=== PATIENT | male | born 1955 | race Caucasian/White ===

== ENCOUNTER → 2020-06-14 11:23 | Outpatient (CLI) | payer MEDICARE, OTHER, SELFPAY ==
--- NOTE | ~2020-06-14 | XR_ITS ---
EXAMINATION: XR hip BI 2V w AP pelvis DATE: 06/14/2020 11:48 INDICATION: Hip pain TECHNIQUE: AP view the pelvis and two views of each hip were obtained. COMPARISON: None. FINDINGS: Bone alignment is normal. There is no fracture. There is advanced osteoarthritis of the rig ht hip and mild osteoarthritis of the left hip. Phleboliths are noted in the pelvis. The soft tissues are otherwise unremarkable. IMPRESSION: 1. Advanced osteoarthritis of the right hip and mild osteoarthritis of the left hip. Reviewed, dictated and finalized at location A.
== END ==
PROVIDERS: PCP Internal Medicine; Visit Provider Internal Medicine
DX: M16.0 Bilateral primary osteoarthritis of hip (principal)
CPT/HCPCS: 73521

== ENCOUNTER 2020-09-14 07:52 | Outpatient (CLI) | payer MEDICARE, OTHER, SELFPAY ==
--- NOTE | 2020-09-14 08:47 | ECG_ITS ---
Measurements Intervals [place] Rate: 71 P: 59 LA: 143 QRS: 14 QRSD: 96 T: 28 QT: 389 QTc: 423 Interpretive Statements SINUS RHYTHM WITH SINUS ARRHYTHMIA BORDERLINE R WAVE PROGRESSION, ANTERIOR LEADS BASELINE ARTIFACT- I, II, III, AVR, AVL, AVF ABNORMAL ECG Electronically Signed On 09-14-2020 9:22:05 SITE PHYSICIAN by Jarrell Neal D.O.
[2020-09-14 09:42] LABS: Basophils Absolute Auto 0.1 K/mm3 (0.0-0.1); Basophils Percent Auto 0.9 % (0.2-1.2); Eosinophils Absolute Auto 0.2 K/mm3 (0-0.3); Eosinophils Percent Auto 1.8 % (0-4.4); Hematocrit 43.5 % (42.0-52.0); Hemoglobin 15.5 g/dL (14.0-18.0); Immature Granulocyte Absolute 0.02 K/mm3 (0.00-0.031); Immature Granulocyte Percent A 0.2 % (0-0.5); Lymphocytes Absolute Auto 1.22 K/mm3 (0.9-3.2); Lymphocytes Percent Auto 14.9 % (18.3-44.2); Mean Corpuscular HGB Conc 35.6 g/dl (32-36); Mean Corpuscular Hemoglobin 34.1 pg (26-34); Mean Corpuscular Volume 95.8 fl (80-100); Mean Platelet Volume 10.7 fl (7.4-10.4); Monocytes Absolute Auto 0.9 K/mm3 (0.1-0.6); Monocytes Percent Auto 11.5 % (2.6-8.5); Neutrophils Absolute Auto 5.8 K/mm3 (1.3-6.7); Neutrophils Percent Auto 70.7 % (45.5-73.1); Platelet Count Result 283 k/mm3 (150-375); Red Blood Count 4.54 M/mm3 (4.6-6.20); Red Cell Distribution Width 13.3 % (11.5-14.5); White Blood Count 8.2 K/mm3 (4.5-10.0)
[2020-09-14 09:51] LABS: Albumin Level 4.5 g/dL (3.5-5.1)
[2020-09-14 09:53] LABS: Anion Gap 6 mmol/L (8-16); Blood Urea Nitrogen 28 mg/dL (9-20); Calcium 9.5 mg/dL (8.4-10.2); Carbon Dioxide 33 mmol/L (22-30); Chloride 99 mmol/L (98-107); Estimated Glomerular Filt Rate > 60; Glucose 93 mg/dL (75-110); Potassium 4.5 mmol/L (3.4-5.0); Sodium 138 mmol/L (137-145)
[2020-09-14 10:03] LABS: Hemoglobin A1C 5.5 % (<5.7)
[2020-09-14 10:19] LABS: Urine Cotinine NEGATIVE
== END 2020-09-14 07:53 | disposition home or self-care (01) ==
LOC: ANHSURGERY 07:55
PROVIDERS: Anesthesiology; PCP Internal Medicine; Visit Provider Orthopaedic Surgery
DX: Z01.818 Encounter for other preprocedural examination (principal); M16.11 Unilateral primary osteoarthritis, right hip; Z51.81 Encounter for therapeutic drug level monitoring; Z79.899 Other long term (current) drug therapy
CPT/HCPCS: 36415; 80048; 80307; 82040; 83036; 85025; 86850; 86900; 86901; 87081; 93005

== ENCOUNTER 2020-09-24 00:51 | Outpatient (CLI) | payer MEDICARE, OTHER, SELFPAY ==
[2020-09-24 18:46] LABS: SARS-CoV-2 RNA PCR Negative
== END 2020-09-24 00:52 | disposition home or self-care (01) ==
LOC: ANHCOVIDDT 00:51
PROVIDERS: PCP Internal Medicine; Visit Provider Orthopaedic Surgery
DX: Z01.812 Encounter for preprocedural laboratory examination (principal); Z20.822 Contact with and (suspected) exposure to COVID-19
CPT/HCPCS: C9803; U0003; U0005

== ENCOUNTER 2020-09-27 02:39 | Day surgery (SDC) | payer MEDICARE, OTHER, SELFPAY ==
[2020-09-14 08:24] VITALS: BMI 24.0
[2020-09-27] VITALS (11 sets, daily range): BP systolic 103–140; BP diastolic 60–77; PULSE 63–84; RESP 9–20; TEMP 36.5; O2SAT 96–100
--- NOTE | ~2020-09-27 | XR_ITS ---
EXAMINATION: XR hip RT min 2V DATE: 09/27/2020 10:37 INDICATION: Right hip arthroplasty. Postop. TECHNIQUE: 2 views of right hip were obtained. COMPARISON: Pelvis radiograph 08/25/2020 FINDINGS: There is a total right hip arthroplasty in near-anatomic alignment. No fracture. There is g as in the soft tissues, consistent with recent surgery. IMPRESSION: 1. Total right hip arthroplasty in near-anatomic alignment. Reviewed, dictated and finalized at location B. ASTIC COACH
--- NOTE | ~2020-09-27 | XR_ITS ---
EXAMINATION: XR surgery orthopedic DATE: 09/27/2020 10:04 INDICATION: Right hip osteoarthritis. TECHNIQUE: 2 intraoperative fluoroscopic views of right hip were obtained. I was not present. Fluoros copy exposure time was 24 seconds. COMPARISON: Pelvis radiograph 08/25/2020. FINDINGS: The first image demonstrates severe right hip osteoarthritis. The second image demonstrates a total right hip arthroplasty in near-anatomic alignment. IMPRESSION: 1. Total right hip arthroplasty in near-anatomic alignment. Reviewed, dictated and finalized at location B. LS MOLDER
[2020-09-27] MEDS: LACTATED RINGERS 1,000 ML 30 ML IV CONT ×2 (06:30→10:23)
[2020-09-27] MEDS: ACETAMINOPHEN 500 MG TABLET 1000 MG PO (06:40)
[2020-09-27] MEDS: TRANEXAMIC ACID 1,000MG/ISO100 1,000 MG/100 ML BAG 200 MG IVPB (06:44)
--- NOTE | 2020-09-27 06:49 | P.PNAN_ITS ---
Anes - Initial Pre Proc Eval Procedure: Operation Date: 09/27/20 07:30 Proposed Procedures p Right Total Hip Anterior Approach - Davin Btehea MD Date/Time: 09/27/20 06:49 Surgeon: Davin Bethea MD Pre Op Diagnosis: Right Hip OA Patient Data Age: 65 Gender: M Height: 1.75 m Weight: 74 kg Allergies Allergy/AdvReac Type Severity Reaction Status Date / Time No Known Allergies Allergy Mild Verified 09/27/20 06:46 Home Medications Medication Instructions Recorded Confirmed Type tadalafil 5 mg tablet 5 mg PO DAILY PRN #30 tablet 06/09/20 09/21/20 Rx ibuprofen 200 mg tablet 400 mg PO Q6H PRN 08/25/20 09/27/20 History multivitamin 1 tablet PO BID 08/25/20 09/27/20 History acetaminophen [Tylenol Arthritis] 1,300 mg PO Q12H PRN 09/14/20 09/27/20 History amlodipine 5 mg QAM 09/14/20 09/27/20 History hydrochlorothiazide 50 mg QAM 09/14/20 09/27/20 History rosuvastatin 40 mg PO HS 09/14/20 09/21/20 History lisinopril 40 mg tablet 40 mg PO BID #180 tablet 09/16/20 09/27/20 Rx magnesium citrate 150 ml PO DAILY 09/21/20 09/27/20 History rivaroxaban 10 mg tablet 10 mg PO DAILY #14 tablet 09/21/20 09/27/20 Rx rosuvastatin 40 mg PO DAILY 09/27/20 09/27/20 History Patient hx anesthesia problems: none Family hx anesthesia problems: none [facility] Past Medical History Medical History BMI 24.0-24.9, adult BMI 25.0-25.9,adult Hypertension Osteoarthritis of right hip Family History Family History Mother Family history of osteoporosis Father Family history of congestive heart failure, Onset Age: 83 Social History Social History Smoking status: Former smoker Second hand tobacco smoke exposure: No Alcohol intake: current Drinks per week: 2 Substance use: never Substance use type: does not use Living arrangements: with family 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, 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 Questions were solicited and answers provided to the satisfaction of the patient/family/POA.
--- NOTE | 2020-09-27 07:12 | WPDHPUPDATE1 ---
History and Physical Update Update Date/Time: 09/27/20 07:12 History and Physical has been reviewed, including an updated exam of the patient. There are NO changes in the patient's condition. Risks, benefits, and alternatives have been discussed and questions answered. Patient agrees to proceed with procedure.
[2020-09-27] MEDS: ceFAZolin 2 GM/D5W 50 ML 2 GM/50 ML BAG IVPB (07:27)
[2020-09-27] MEDS: LIDO 1%/EPINEPHRINE 1:100,000 50 ML VIAL INFILTRATE (08:02)
[2020-09-27] MEDS: TRANEXAMIC ACID 1,000 MG/10 ML AMPUL 1000 MG TOPICAL (08:02)
[2020-09-27] MEDS: ceFAZolin SODIUM 1 GM VIAL IV PUSH (09:59)
--- NOTE | 2020-09-27 10:34 | PM.PROC ---
Procedure Note - Detailed Date of procedure: 09/27/20 Pre-op diagnosis: Right Hip OA Post-op diagnosis: same Procedure performed: right total hip replacement through an anterior approach Description of procedure: The patient was identified, proper side identified, and then taken to the operating room. After induction of general anesthesia with intubation, he was then transferred over to the [place] table positioning supine in the usual manner for an anterior hip procedure. Positioning was assessed fluoroscopically after which the right hip and thigh was prepped and draped in the usual sterile fashion. 10 cc of the arthroplasty solution was injected into the subcutaneous tissue over the TFL muscle belly. Longitudinal incision was made over the muscle belly. Subcutaneous tissue was sharply dissected down to the TFL fascia which was incised in line with the fibers the TFL. The TFL was retracted laterally and the rectus femoris medially. The rectus fascia was divided. The branches of the anterior femoral circumflex artery were identified and cauterized allowing for access to the hip capsule. Pericapsular fatty tissue was removed. The capsule was divided in an inverted T-fashion. The neck cut was made one fingerbreadth above the level of the lesser trochanter. Head fragment was removed and the acetabulum cleared of debris. Acetabulum was sequentially reamed under fluoroscopic visualization up to 53 mm. A 54 G7 cup was inserted under fluoroscopic visualization in approximately 40? of abduction and 15? of anteversion following the patient's anatomy. It was further secured with a single screw and then the liner for the 36 head was placed. The femur was then delivered up into the wound with the appropriate releases. The proximal femur was prepared for the size 10 echo micro plasty stem and a trial reduction was undertaken. Overall alignment was assessed fluoroscopically in the AP and lateral views noting it to be satisfactory. Trial components were removed. The wound was irrigated with pulsatile lavage. The real size 10 micro plasty stem was then seated. This construct with a minus six, 36 head gave excellent buddhist of leg lengths and stability so the real -6 36 ceramic head was attached to the neck of the femoral component after it had been cleaned and dried. Hip was again reduced and stability assessed, and it was noted to be stable. After final lavage of the wound, the periarticular tissues were injected with an additional 40 cc of 1% lidocaine and epinephrine solution. 1 g of tranexamic acid was left in the wound. The TFL fascia with 0 looped PDS suture, the subcu with two of strata fix in the deeper layers and two of strata fix subcuticular stitch. Tissue adhesive was used for the skin. Sterile dressing was applied. He tolerated the procedure well. He was transferred back to a bed and taken to recovery area in stable condition. There were no known intraoperative complications. Estimated blood loss was 200 cc. Cell Saver was used but there was not enough to return. He received perioperative antibiotics. Anesthesia: GETA Surgeon: Davin Bethea MD Estimated blood loss (mL): 200 Drains: No Packing: No Pathology: none sent Complications: No immediate complications Condition: stable Disposition: PACU
[2020-09-27] MEDS: fentaNYL CITRATE INJ (*CRX) 100 MCG/2 ML VIAL 25 MCG IV PUSH ×4 (10:51→11:13)
--- NOTE | 2020-09-27 12:39 | SUR.PHASEII ---
PT ATE LUNCH, TOLERATED WELL.
== END 2020-09-27 13:50 | disposition home or self-care (01) ==
PROVIDERS: PCP Internal Medicine; Visit Provider Orthopaedic Surgery
PROC: (CPT 27130; principal; 2020-09-27 07:30)
DX: M16.11 Unilateral primary osteoarthritis, right hip (principal); Z79.01 Long term (current) use of anticoagulants; I10 Essential (primary) hypertension; Z87.891 Personal history of nicotine dependence
CPT/HCPCS: 27130; 73502; 97161; A9270; C1776; J0330; J0690; J1100; J1170; J2250; J2370; J2405; J2704; J2710; J3010; J7120

== ENCOUNTER 2020-09-28 14:35 | Emergency (ER) | payer MEDICARE, OTHER, SELFPAY ==
[2020-09-28 15:04] VITALS: BP 103/61; PULSE 100; RESP 18; TEMP 36.9; O2SAT 98
--- NOTE | 2020-09-28 15:18 | PC.NURSE ---
patient in room 16 with possible urinary retention after hip surgery yesterday. see initial notes. alert. oriented. walking with walker. c/o increased hip pain that he states is not relieved with pain medication given after surgery. present.
--- NOTE | 2020-09-28 16:05 | PC.NURSE ---
springer draining clear saeid colored urine. patient resting on stretcher. denies needs at this time. unsure on plan with catheter. will discuss with provider.
--- NOTE | 2020-09-28 16:20 | PC.NURSE ---
provider at bedside to check on patient.
--- NOTE | 2020-09-28 16:53 | ED.ABDPAIN ---
HPI - Abdominal Pain General Chief Complaint: Urogenital-Male Stated Complaint: unable to empty bladder, post op hip replacement Time Seen by Provider: 09/28/20 15:02 Source: patient Mode of arrival: ambulatory Limitations: no limitations History of Present Illness HPI narrative: Patient presents for evaluation of difficulty urinating that began last night after having his hip replacement performed by Dr. Bethea. Patient states that he was up and down throughout the night feeling as if he had to urinate however he would not void or have minimal output. Patient states today he has noticed some improvement in his output however he still feels that he is having some discomfort to his penis with urination and that he has more urine to output. Patient states that he has some mild BPH but has not had to take any medications for it in the past. Patient states that he was discharged home with home physical therapy instructions. He states that his procedure was performed without complications. Related Data Home Medications Medication Instructions Recorded Confirmed ibuprofen 200 mg tablet 400 mg PO Q6H PRN 08/25/20 09/27/20 multivitamin 1 tablet PO BID 08/25/20 09/27/20 acetaminophen 1,300 mg PO Q12H PRN 09/14/20 09/27/20 amlodipine 5 mg QAM 09/14/20 09/27/20 hydrochlorothiazide 50 mg QAM 09/14/20 09/27/20 magnesium citrate 150 ml PO DAILY 09/21/20 09/27/20 rosuvastatin 40 mg PO DAILY 09/27/20 09/27/20 Allergies Allergy/AdvReac Type Severity Reaction Status Date / Time No Known Allergies Allergy Mild Verified 09/28/20 15:08 Review of Systems Review of Systems: Narrative: CONSTITUTIONAL: Denies fever, chills, or sweats. EYES: Denies visual changes, redness, or discharge. ENT: Denies rhinorrhea, congestion, sore throat, or otalgia. CARDIOVASCULAR: Denies chest pain, palpitations, or edema. RESPIRATORY: Denies cough or dyspnea. GASTROINTESTINAL: Denies abdominal pain, nausea, vomiting, or diarrhea. GENITOURINARY: Reports urinary retention denies dysuria or hematuria. SKIN: Denies rash or itching. MUSCULOSKELETAL: Denies back pain, joint pain, or myalgia. NEUROLOGIC: Denies headache, numbness, dizziness, or weakness. PSYCHIATRIC: Denies anxiety or depression. [facility] Past Medical History Medical History (Updated 09/28/20 @ 17:22 by Sergey Villagran PA-C) BMI 24.0-24.9, adult BMI 25.0-25.9,adult Hypertension Osteoarthritis of right hip Surgical History Surgical History (Updated 09/27/20 @ 10:32 by Davin Bethea MD) History of right hip replacement September 2019 Family History Family History Mother Family history of osteoporosis Father Family history of congestive heart failure, Onset Age: 83 Social History Social History Smoking status: Former smoker Second hand tobacco smoke exposure: No Alcohol intake: current Drinks per week: 2 Substance use: never Substance use type: does not use 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 HEAD: Normocephalic, atraumatic. EYES: PERRLA and EOMI. CHEST: Clear to auscultation. No respiratory distress. No wheezes rales or rhonchi HEART: Regular rate and rhythm. ABDOMEN: Soft, nontender in abdomen or over bladder, nondistended, normal active bowel sounds. EXTREMITIES: Normal range of motion. No edema. SKIN: Warm, dry, no rash. NEURO: No focal deficits. Alert and oriented x3. PSYCH: Normal mood and affect. Course Vital Signs Vital signs: Vital Signs Temperature 98.5 F 09/28/20 15:04 Pulse Rate 100 09/28/20 15:04 Respiratory Rate 18 09/28/20 15:04 Blood Pressure 103/61 09/28/20 15:04 Pulse Oximetry 98 09/28/20 15:
--- NOTE | 2020-09-28 17:30 | PC.NURSE ---
this RN to bedside. catheter care reviewed with patient's . supplies given for home use including urinal and new bag. leg bag placed on patient.
[2020-09-28 18:32] VITALS: BP 148/78; PULSE 78; RESP 16; O2SAT 96
== END 2020-09-28 18:33 | disposition home or self-care (01) ==
PROVIDERS: Emergency Provider Emergency Medicine; Family Provider Internal Medicine; PCP Internal Medicine
DX: R33.9 Retention of urine, unspecified (principal); I10 Essential (primary) hypertension; M16.11 Unilateral primary osteoarthritis, right hip; Z87.891 Personal history of nicotine dependence; Z96.641 Presence of right artificial hip joint
CPT/HCPCS: 51702; 99283

== ENCOUNTER 2020-10-02 07:41 | Emergency (ER) | payer MEDICARE, OTHER, SELFPAY ==
--- NOTE | ~2020-10-02 | US_ITS ---
EXAMINATION: US venous doppler LE RT DATE: 10/02/2020 09:07 INDICATION: Right lower limb pain and swelling TECHNIQUE: [place] scale images without and with compression and Doppler images of the right lower extre mity veins were obtained. COMPARISON: None FINDINGS: The right common femoral vein, profunda femoral vein, femoral vein, popliteal vein, peronea l trunk, posterior tibial veins, and greater saphenous vein are patent. IMPRESSION: 1. Patent right lower extremity veins. No evidence of deep venous thrombosis. Reviewed, dictated and finalized at location A. DLE CARVER
[2020-10-02 07:39] VITALS: BP 129/63; PULSE 92; RESP 19; TEMP 37; O2SAT 97
[2020-10-02 08:02] LABS: Basophils Percent Auto 0.5 % (0.2-1.2); Eosinophils Absolute Auto 0.2 K/mm3 (0-0.3); Eosinophils Percent Auto 2.7 % (0-4.4); Hematocrit 30.4 % (42.0-52.0); Hemoglobin 10.7 g/dL (14.0-18.0); Immature Granulocyte Absolute 0.02 K/mm3 (0.00-0.031); Immature Granulocyte Percent A 0.3 % (0-0.5); Lymphocytes Absolute Auto 0.79 K/mm3 (0.9-3.2); Lymphocytes Percent Auto 10.3 % (18.3-44.2); Mean Corpuscular HGB Conc 35.2 g/dl (32-36); Mean Corpuscular Hemoglobin 33.4 pg (26-34); Mean Platelet Volume 9.8 fl (7.4-10.4); Monocytes Absolute Auto 1.3 K/mm3 (0.1-0.6); Monocytes Percent Auto 17.1 % (2.6-8.5); Neutrophils Absolute Auto 5.3 K/mm3 (1.3-6.7); Neutrophils Percent Auto 69.1 % (45.5-73.1); Platelet Count Result 249 k/mm3 (150-375); Red Cell Distribution Width 13.4 % (11.5-14.5); White Blood Count 7.7 K/mm3 (4.5-10.0)
[2020-10-02 08:13] LABS: INR 1.1; Prothrombin Time 14.7 Seconds (11.1-14.7)
[2020-10-02 08:14] LABS: Alanine Aminotransferase 56 U/L (4-50); Albumin Level 3.4 g/dL (3.5-5.1); Alkaline Phosphatase 89 U/L (38-126); Anion Gap 6 mmol/L (8-16); Aspartate Amino Transferase 70 U/L (17-59); Bilirubin,Total 0.7 mg/dL (0.2-1.3); Blood Urea Nitrogen 34 mg/dL (9-20); Calcium 8.5 mg/dL (8.4-10.2); Carbon Dioxide 29 mmol/L (22-30); Chloride 98 mmol/L (98-107); Estimated CRCL calculation 71 ml/min; Estimated Glomerular Filt Rate > 60; Glucose 109 mg/dL (75-110); Potassium 3.9 mmol/L (3.4-5.0); Sodium 133 mmol/L (137-145)
[2020-10-02] MEDS: fentaNYL CITRATE INJ (*CRX) 100 MCG/2 ML VIAL 50 MCG IV PUSH (08:15)
[2020-10-02] MEDS: methylPREDNISolone SOD SUCC 125 MG VIAL IV PUSH (08:36)
--- NOTE | 2020-10-02 08:53 | PC.NURSE ---
PT TO U/S VIA STRETCHER.
[2020-10-02 09:28] VITALS: BP 125/71; PULSE 93; RESP 12; O2SAT 97
--- NOTE | 2020-10-02 10:24 | ED.GENADULT ---
HPI - General Adult General Chief complaint: Extremity Injury, Lower Stated complaint: post op complications Time Seen by Provider: 10/02/20 07:43 Source: patient Mode of arrival: EMS Limitations: no limitations History of Present Illness HPI narrative: 65-year-old with a history of hypertension s/p right hip replaced here with complaints of severe pain to his right hip and also complains of swelling to his right leg. Patient states that he has been taking tramadol with no significant relief. No history of fever or chills denies any trauma. Onset (ago): day(s) (2) Location: lower extremity (Right hip) Radiation: extremity Severity: moderate Severity scale (1-10): 7 Quality: aching Pain Consistency: constant Relieving factors: none Exacerbating factors: movement Related Data Home Medications Medication Instructions Recorded Confirmed ibuprofen 200 mg tablet 400 mg PO Q6H PRN 08/25/20 09/27/20 multivitamin 1 tablet PO BID 08/25/20 09/27/20 acetaminophen 1,300 mg PO Q12H PRN 09/14/20 09/27/20 amlodipine 5 mg QAM 09/14/20 09/27/20 hydrochlorothiazide 50 mg QAM 09/14/20 09/27/20 magnesium citrate 150 ml PO DAILY 09/21/20 09/27/20 rosuvastatin 40 mg PO DAILY 09/27/20 09/27/20 Allergies Allergy/AdvReac Type Severity Reaction Status Date / Time No Known Allergies Allergy Mild Verified 10/02/20 07:50 Review of Systems Review of Systems: All systems reviewed & are unremarkable except as noted in HPI and below Constitutional: Constitutional: Reports no additional constitutional complaints Eyes: Eyes: Reports no additional eye complaints ENT: Reports system reviewed and no additional complaints, except as documented Cardiovascular: Cardiovascular: Reports no additional cardiovascular complaints Respiratory: Respiratory: Reports no additional respiratory complaints Gastrointestinal: Gastrointestinal: Reports no additional gastrointestinal complaints Musculoskeletal: Musculoskeletal: Reports as per HPI Neurologic: Reports system reviewed and no additional complaints, except as documented [facility] Past Medical History Medical History BMI 24.0-24.9, adult BMI 25.0-25.9,adult Hypertension Osteoarthritis of right hip Surgical History Surgical History History of right hip replacement September 2019 Family History Family History Mother Family history of osteoporosis Father Family history of congestive heart failure, Onset Age: 83 Social History Social History Smoking status: Former smoker Second hand tobacco smoke exposure: No Alcohol intake: current Drinks per week: 2 Substance use: never Substance use type: does not use 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 NECK: Supple. CHEST: Clear to auscultation. No respiratory distress. HEART: Regular rate and rhythm. No murmur heard. Normal peripheral pulses. ABDOMEN: Soft, nontender, nondistended, normal active bowel sounds. Hemoccult Neg EXTREMITIES: Pain in the right hip ,very limited motion sec to pain , right leg is swollen good pulse and normal sensory SKIN: Warm, dry, no rash. NEURO: No focal deficits. Alert and oriented x3. PSYCH: Normal mood and affect. Course Course Emergency Course: Patient having significant pain in the right hip radiating all the way to her thigh and leg did CBC and chemistry however his hemoglobin has dropped significantly from 15-10.5 I did discuss with recommended to start on Medrol Dosepak pack and , ice pack.Pt stated his pain h
[2020-10-02 10:38] VITALS: BP 124/61; PULSE 94; RESP 24; O2SAT 97
[2020-10-02 10:54] VITALS: BP 134/56; PULSE 87; RESP 14; O2SAT 97
--- NOTE | 2020-10-02 12:33 | PC.NURSE ---
PT REQUESTED TO USE RR, HELPED FROM STRETCHER W/ BEDSIDE COMMODE AVAILABLE - PT DECLINED AND STATED WOULD LIKE TO USE WALKER TO AMBULATED TO RR. PT ASSISTED W/ WALKER TO RESTROOM. TOLD CARMEN PEACOCK TO NOT WAIT FOR HIM. PT INSTRUCTED TO LET US KNOW IF HE NEEDS HELP/ASSISTANCE AND TOLD TO LET US KNOW WHEN HE NEEDED TO HEAD BACK TO ROOM SO STAFF COULD ASSIST.
[2020-10-02 13:33] VITALS: BP 124/80; PULSE 89; RESP 17; O2SAT 98
--- NOTE | 2020-10-02 14:04 | PC.NURSE ---
here to flower buncher or picker pt. Pt declined wheelchair. Pt used walker to walk to exit
== END 2020-10-02 14:05 | disposition home or self-care (01) ==
PROVIDERS: Emergency Provider Family Medicine; Family Provider Internal Medicine; PCP Internal Medicine
DX: G89.18 Other acute postprocedural pain (principal); M25.551 Pain in right hip; Z96.641 Presence of right artificial hip joint; I10 Essential (primary) hypertension; Z87.891 Personal history of nicotine dependence; M79.89 Other specified soft tissue disorders
CPT/HCPCS: 36415; 80053; 85025; 85610; 93971; 96374; 96375; 99284; J2930; J3010

== ENCOUNTER 2020-12-20 09:32 | Outpatient (CLI) | payer MEDICARE, OTHER, SELFPAY | END 2020-12-20 09:33 | disposition home or self-care (01) | LOC: ANHCOVIDVC 09:32 | PROVIDERS: PCP Internal Medicine | DX: Z23 Encounter for immunization (principal) | CPT/HCPCS: 0001A; 91300 ==

== ENCOUNTER 2021-01-10 09:37 | Outpatient (CLI) | payer MEDICARE, OTHER, SELFPAY | END 2021-01-10 09:38 | disposition home or self-care (01) | LOC: ANHCOVIDVC 09:37 | PROVIDERS: PCP Internal Medicine | DX: Z23 Encounter for immunization (principal) | CPT/HCPCS: 0002A; 91300 ==

== ENCOUNTER 2023-03-28 08:13 | Outpatient (CLI) | payer MEDICARE, OTHER, SELFPAY ==
--- NOTE | 2023-03-28 08:26 | ECG_ITS ---
Measurements Intervals [place] Rate: 74 P: -1 OR: 144 QRS: 2 QRSD: 117 T: 45 QT: 380 QTc: 424 Interpretive Statements SINUS RHYTHM ATRIAL PREMATURE COMPLEXES BORDERLINE ST-T WAVE ABNORMALITY- HIGH LATERAL LEADS BASELINE ARTIFACT- I, II, III, AVR, AVL, AVF BORDERLINE ECG COMPARED TO ECG 09/14/2020 09:34:54 ST-T WAVE ABNORMALITY NOW PRESENT Electronically Signed On 03-28-2023 9:11:57 CDT by Jarrell Neal D.O.
[2023-03-28 09:36] LABS: Anion Gap 8 mmol/L (8-16); Blood Urea Nitrogen 27 mg/dL (9-20); Calcium 9.2 mg/dL (8.4-10.2); Carbon Dioxide 31 mmol/L (22-30); Chloride 103 mmol/L (98-107); Estimated Glomerular Filt Rate > 60; Glucose 84 mg/dL (65-110); Potassium 3.8 mmol/L (3.4-5.0); Sodium 142 mmol/L (137-145)
== END 2023-03-28 08:14 | disposition home or self-care (01) ==
LOC: ANHSURGERY 08:19
PROVIDERS: Anesthesiology; PCP Family Medicine; Visit Provider Surgery
DX: Z01.812 Encounter for preprocedural laboratory examination (principal); Z01.810 Encounter for preprocedural cardiovascular examination; K40.90 Unilateral inguinal hernia, without obstruction or gangrene, not specified as recurrent; I10 Essential (primary) hypertension; R94.31 Abnormal electrocardiogram [ECG] [EKG]
CPT/HCPCS: 36415; 80048; 86850; 86900; 86901; 93005

== ENCOUNTER 2023-03-30 00:12 | Day surgery (SDC) | payer MEDICARE, OTHER, SELFPAY ==
--- NOTE | 2023-03-26 14:55 | PC.NURSE ---
Report to the Outpatient Waiting Room, entrance under the green pavilion located off [facility], at time _0700_ on date 03/30/23_. Planned Procedure Time: 0900_. Time changes happen often and if your time is changed the preop area will call you the afternoon before. - You and your visitor will be asked to self-screen and do not enter if you have any COVID symptoms. - A mask is optional within the hospital at this time. Patients may have clear liquids (water, carbonated beverages, clear teas, apple juice) until 3 hours prior to surgery with a maximum of 20 ounces. - No food from midnight until time of surgery - Infants may have breast milk until 4 hours before surgery, formula 6 hours prior to surgery. - Children will be allowed to drink immediately following surgery. If applicable, please bring a bottle or sippy cup to assist with drinking. Juice, water, soda, and popsicles are readily available. For infants on formula, please bring formula the day of surgery. Pacifiers are allowed. Take the following medications with a SIP of water the morning of surgery: ____AMLODIPINE DO NOT STOP ANY OF YOUR OTHER PRESCRIPTION MEDICATIONS PRIOR TO SURGERY ?EXCEPT THE FOLLOWING Medications to discontinue per physician IBUPROFEN Date to take last dose_03/27/23 Please no make-up, nail cuban, hairspray, perfume, deodorant, or body powder the day of surgery. No jewelry (including any body piercings) or valuables the day of surgery, leave them at home. Please take a shower or bath the night before, or the morning of, surgery with HIBICLENS antibacterial soap. Wear comfortable, loose fitting clothing. Children are encouraged to wear pajamas. - Jewelry must be removed prior to entering the operating room. Rings and piercings that are not removed may be cut off. - The hospital will not accept responsibility for valuables. - Please leave all valuables, including medications, at home the day of surgery. If you are going home after surgery, a licensed screw driver operator must drive you home. - NO public transportation without another adult if you receive anesthesia. - We recommend that an adult stay with you for 24 hours following discharge. - We also recommend that you do not drive, make important decision, drink alcoholic beverages, or take any drugs that were not prescribed by your health care provider for at least 24 hours after your discharge time. For Pediatric surgeries, we recommend two adults accompany the child home. Follow any additional instructions given to you from your surgeon. If you or anyone in your household have experienced Covid symptoms in the past week, please notify your surgeon or the nurse liaison at the phone number below for possible testing. Telephone instructions given to _PATIENT_and asked if any additional questions and then verbalized understanding. Patient advised to call surgeon office or pre surgery nurse liaison [phone] if any additional questions.
[2023-03-26 15:37] VITALS: BMI 23.6
[2023-03-30] VITALS (12 sets, daily range): BP systolic 89–142; BP diastolic 45–74; PULSE 56–88; RESP 8–16; TEMP 36.2–36.3; O2SAT 98–100
[2023-03-30] MEDS: ACETAMINOPHEN 500 MG TABLET 1000 MG PO (07:50)
[2023-03-30] MEDS: KETOROLAC 15 MG/ML VIAL (*BKC) IV PUSH (07:50)
[2023-03-30] MEDS: LACTATED RINGERS 1,000 ML 30 ML IV CONT ×3 (08:00→13:34)
--- NOTE | 2023-03-30 08:46 | WPDHPUPDATE1 ---
History and Physical Update Update Date/Time: 03/30/23 08:46 History and Physical has been reviewed, including an updated exam of the patient. There are NO changes in the patient's condition. Risks, benefits, and alternatives have been discussed and questions answered. Patient agrees to proceed with procedure.
--- NOTE | 2023-03-30 08:53 | WPDANESEPPF ---
Anes - Initial Pre Proc Eval Procedure: Operation Date: 03/30/23 09:00 Proposed Procedures p Robotic Laparoscopic Repair Right Inguinal Hernia with Mesh - Tobin Aguirre MD Date/Time: 03/30/23 08:53 Surgeon: Tobin Aguirre MD Pre Op Diagnosis: Right Ing Hernia Patient Data Age: 67 Gender: M Height: 1.75 m Weight: 70.2 kg Last Vital Signs Temp 36.2 C L 03/30/23 07:18 Pulse 56 L 03/30/23 07:18 Resp 16 03/30/23 07:18 BP 135/69 03/30/23 07:18 Pulse Ox 100 03/30/23 07:18 O2 Del Method Room Air 03/30/23 07:18 Allergies Allergy/AdvReac Type Severity Reaction Status Date / Time No Known Allergies Allergy Mild Verified 03/30/23 07:56 Home Medications Medication Instructions Recorded Confirmed Type ibuprofen 200 mg tablet 400 mg PO Q6H PRN Pain 08/25/20 03/30/23 History lisinopril 40 mg tablet See Rx Instructions .Route 05/29/22 03/30/23 Rx .COMPLEX #180 tabs hydrochlorothiazide 50 mg tablet 50 mg PO DAILY #90 tabs 09/22/22 03/30/23 Rx amlodipine 5 mg tablet 5 mg PO QAM #90 tabs 10/30/22 03/30/23 Rx rosuvastatin 40 mg tablet 40 mg PO DAILY #90 tabs 11/14/22 03/30/23 Rx Patient hx anesthesia problems: other (urinary retention) Family hx anesthesia problems: none Results Review: All pre-operative results and documents have been reviewed as part of the pre-operative evaluation. [facility] Past Medical History Medical History BMI 24.0-24.9, adult BMI 25.0-25.9,adult COVID-19 Hypertension Surgical History Surgical History H/O prostatectomy History of right hip replacement September 2020 Family History Family History Mother Family history of osteoporosis Father Family history of congestive heart failure, Onset Age: 83 Social History Social History Smoking status: Never smoker Second hand tobacco smoke exposure: No Alcohol intake: current Drinks per week: 2 Alcohol use details: Social Substance use: never Substance use type: does not use Lack of Transportation: No Lack of Food: Never True Current Housing: I Have Housing Concerned About Future Housing: No Difficulty Paying Gas/Electric Bills: No Difficulty Paying for Meds: No Currently Unemployed: No Living arrangements: with family Occupation/Education: occupation 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 Informed Consent: The patient's anesthetic plan and its attendant risks and benefits were discussed with the patient/family/POA. Questions were solicited and answers provided to the satisfaction of the patient/family/POA.
[2023-03-30] MEDS: BUPIVACAINE/EPINEPHRINE 0.5% 10 ML VIAL 20 ML INFILTRATE (09:30)
--- NOTE | 2023-03-30 09:32 | SUR.OPER ---
Ancef 2g given at Nov is down 20ml of 0.5% Marcaine with Epi given per Dr. Aguirre
--- NOTE | 2023-03-30 10:59 | W.PM.PROC2 ---
Procedure Note - Detailed Date of Procedure 03/30/23 Pre-op Diagnosis Right Ing Hernia Post-op Diagnosis Same Procedure Performed Robotic laparoscopic repair right inguinal hernia with mesh Surgeon Tobin Aguirre MD Anthropology Department Chair Abdulkadir LOERA Anesthesia General and Local (0.5% Marcaine with epinephrine) Indications Patient noticed a right inguinal bulge that comes and goes. It is uncomfortable and sometimes even painful with heavier activity. He was noted on exam to have a right inguinal hernia. He is taken to surgery now for robotic laparoscopic repair. Findings Patient had an indirect right inguinal hernia. Description of Procedure Patient was taken to surgery and induced into general anesthesia. The abdomen is prepped and draped. The initial trocar was placed just to the right of midline and above the umbilicus. Local was infiltrated and then a small incision was made. The varies needle was introduced into the peritoneal cavity. Intraperitoneal location was verified by saline drop technique. We then insufflated and distended the abdomen. We removed the varies needle and introduced in applied Medical optical trocar. When the camera was in the abdomen, we then placed the right-sided more lateral 8 mm robotic port using similar technique of local anesthetic. The camera was then switched to this right-sided port and using some laparoscopic dissection scissors, some anterior abdominal wall adhesions were too taken down some S that we could get visualization of the right inguinal region. We then placed the left-sided 8 mm robotic trocar under direct visualization and again using Hardy anesthetic. Finally the 5 mm initial port was traded out for another 8 mm robotic port. We then brought the robot into the field and docked the camera. The camera was positioned to see the right inguinal area and the camera was targeted. We then docked the to other robotic ports. The instruments were placed in the vicinity of the right inguinal hernia. The surgeon then broke scrub and went to the robotic console. A peritoneal flap was developed starting laterally in proceeding over the anterior aspect of the inguinal region towards the median umbilical ligament. The peritoneal flap was carefully developed 1st laterally and then medial to the indirect hernia. Medially we dissected across the midline exposing the left rectus muscle. We dissected down to the pubis and Jeff's ligament. This dissection was continued on posterior to the pubis as well. I then went back to the lateral aspect of the peritoneal flap and further developed this posterior to the pectineal line. We then turned our attention to the indirect hernia defect. The inferior epigastric vessels were carefully dissected from the hernia sac. The sac was retracted anteromedially and spermatic cord vessels were carefully dissected off the sac sweeping them somewhat lateral and posterior. The vas deferens was identified. We continued the dissection under the hernia sac. The sac was then retracted and reduced. There was some lipomatous tissue associated with the indirect hernia. Eventually the sac was exposed and carefully freed from the cord structures. The cord structures were dissected free so that the sac was completely away from them and to avoid a posterior recurrence. There had been some collection of blood mostly medially posterior to the pubis. We exchanged the dissecting scissors for suction and the 1st obstetric assistant carefully suctioned away some of the blood clot. We irrigated and suctioned further. Most of this clot and blood were removed. The scissors were replaced. It did not appear there was any persistent bleeding. The anatomy was more clear now that the blood was sucked away. We then introduced the right sided set 17 by 12 cm 3D max mesh. The mesh was unfolded and placed in the appropriate position. 3-0 Vicryl suture was then used and the mesh was sutured to Jeff's ligament. Some more
--- NOTE | 2023-03-30 13:01 | SUR.PHASEII ---
1240: Patient walked to the bathroom and is trying to urinate.
== END 2023-03-30 14:52 | disposition home or self-care (01) ==
PROVIDERS: PCP Family Medicine; Visit Provider Surgery
PROC: 8E0Y4CZ Robotic Assisted Procedure of Lower Extremity, Percutaneous Endoscopic Approach (ICD-10-PCS; CPT 49650; principal; 2023-03-30 09:00)
DX: K40.90 Unilateral inguinal hernia, without obstruction or gangrene, not specified as recurrent (principal); I10 Essential (primary) hypertension
CPT/HCPCS: 49650; S2900; A9270; C1781; J0330; J0690; J1885; J2250; J2270; J2405; J2704; J7120

== ENCOUNTER 2023-06-28 08:58 | Outpatient (CLI) | payer MEDICARE, OTHER, SELFPAY ==
[2023-06-28 09:38] LABS: Anion Gap 5 mmol/L (8-16); Blood Urea Nitrogen 21 mg/dL (9-20); Calcium 9.6 mg/dL (8.4-10.2); Carbon Dioxide 32 mmol/L (22-30); Chloride 102 mmol/L (98-107); Estimated Glomerular Filt Rate > 60; Glucose 93 mg/dL (65-110); Potassium 5.1 mmol/L (3.4-5.0); Sodium 139 mmol/L (137-145)
== END 2023-06-28 08:59 | disposition home or self-care (01) ==
LOC: ANHSURGERY 09:02
PROVIDERS: Anesthesiology; PCP Family Medicine; Visit Provider Surgery
DX: I10 Essential (primary) hypertension (principal); K40.90 Unilateral inguinal hernia, without obstruction or gangrene, not specified as recurrent
CPT/HCPCS: 36415; 80048; 86850; 86900; 86901

== ENCOUNTER 2023-07-02 00:23 | Day surgery (SDC) | payer MEDICARE, OTHER, SELFPAY ==
--- NOTE | 2023-06-27 09:07 | PC.NURSE ---
Report to the Outpatient Waiting Room, entrance under the green pavilion located off [facility], at time __1000 on date _07/02/23 . Planned Procedure Time: _1200 . Time changes happen often and if your time is changed the preop area will call you the afternoon before. - You and your visitor will be asked to self-screen and do not enter if you have any COVID symptoms. - A mask is optional within the hospital at this time. Patients may have clear liquids (water, carbonated beverages, clear teas, apple juice) until 3 hours prior to surgery with a maximum of 20 ounces. - No food from midnight until time of surgery - Infants may have breast milk until 4 hours before surgery, formula 6 hours prior to surgery. - Children will be allowed to drink immediately following surgery. If applicable, please bring a bottle or sippy cup to assist with drinking. Juice, water, soda, and popsicles are readily available. For infants on formula, please bring formula the day of surgery. Pacifiers are allowed. Take the following medications with a SIP of water the morning of surgery: ___AMLODIPINE, DO NOT STOP ANY OF YOUR OTHER PRESCRIPTION MEDICATIONS PRIOR TO SURGERY ?EXCEPT THE FOLLOWING Medications to discontinue per physician NONE HIBICLENS SHOWER MORNING OF SURGERY Please no make-up, nail dominican, hairspray, perfume, deodorant, or body powder the day of surgery. No jewelry (including any body piercings) or valuables the day of surgery, leave them at home. Please take a shower or bath the night before, or the morning of, surgery with an antibacterial soap. Wear comfortable, loose fitting clothing. Children are encouraged to wear pajamas. - Jewelry must be removed prior to entering the operating room. Rings and piercings that are not removed may be cut off. - The hospital will not accept responsibility for valuables. - Please leave all valuables, including medications, at home the day of surgery. If you are going home after surgery, a licensed team driver must drive you home. - NO public transportation without another adult if you receive anesthesia. - We recommend that an adult stay with you for 24 hours following discharge. - We also recommend that you do not drive, make important decision, drink alcoholic beverages, or take any drugs that were not prescribed by your health care provider for at least 24 hours after your discharge time. For Pediatric surgeries, we recommend two adults accompany the child home. Follow any additional instructions given to you from your surgeon. If you or anyone in your household have experienced Covid symptoms in the past week, please notify your surgeon or the nurse liaison at the phone number below for possible testing. Telephone instructions given to __PATIENT AND DONNA and asked if any additional questions and then verbalized understanding. Patient advised to call surgeon office or pre surgery nurse liaison [phone] if any additional questions.
[2023-06-27 09:13] VITALS: BMI 23.6
--- NOTE | 2023-07-01 18:28 | PM.SD2 ---
Same Day Admit/Disch: HPI History of Present Illness Chief complaint: left inguinal hernia Narrative: Daniel Baker is a 68 year old male who presented last summer with a symptomatic right inguinal hernia. He underwent robotic laparoscopic repair with mesh for a direct RIH on 03/30/23. He recovered from this surgery in an appropriate time frame and was doing well. The last week of April, however, he was rotating to get out of bed and noticed a tearing sensation in his left groin. Soon thereafter, he noted a left inguinal bulge and recurrent left inguinal pain with activity. He was seen in the office and found to have a new left inguinal hernia. He is taken to surgery now for robotic laparoscopic repair of this left inguinal reducible hernia. [facility] Past Medical History Medical History BMI 24.0-24.9, adult BMI 25.0-25.9,adult COVID-19 Hypertension Surgical History Surgical History H/O prostatectomy History of right hip replacement September 2020 History of right inguinal hernia repair 03/30/2023 - Robotic laparoscopic repair right inguinal hernia with mesh Family History Family History Mother Family history of osteoporosis Father Family history of congestive heart failure, Onset Age: 83 Social History Social History Smoking status: Never smoker Second hand tobacco smoke exposure: No Alcohol intake: current Drinks per week: 2 Alcohol use details: Social Substance use: never Substance use type: does not use Lack of Transportation: No Lack of Food: Never True Current Housing: I Have Housing Concerned About Future Housing: No Difficulty Paying Gas/Electric Bills: No Difficulty Paying for Meds: No Currently Unemployed: No Living arrangements: with family Occupation/Education: occupation 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, 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 Gender identity (if verbalized by the patient): Male Spiritual care concerns: No Same Day Admit/Disch: Med Pre-admit Medications Home Medications Medication Instructions Recorded Confirmed Type ibuprofen 200 mg tablet 400 mg PO Q6H PRN Pain 08/25/20 06/27/23 History amlodipine 5 mg tablet 5 mg PO QAM #90 tabs 05/15/23 06/27/23 Rx hydrochlorothiazide 50 mg tablet 50 mg PO DAILY #90 tabs 05/15/23 06/27/23 Rx lisinopril 40 mg tablet See Rx Instructions .Route 05/15/23 06/27/23 Rx .COMPLEX #180 tabs rosuvastatin 40 mg tablet 40 mg PO DAILY #90 tabs 05/15/23 06/27/23 Rx terbinafine HCl 250 mg tablet 250 mg PO DAILY 06/27/23 06/27/23 History ibuprofen 600 mg tablet 600 mg PO Q6H PRN pain #14 tabs 07/02/23 Rx oxycodone-acetaminophen 5 mg-325 1 - 2 tablet PO Q6H PRN pain #15 07/02/23 Rx mg tablet (Percocet) tabs Review of Systems Review of Systems All systems reviewed & are unremarkable except as noted in HPI and below (HPI and those items noted below:) Constitutional Constitutional: Denies chills and Denies fever(s) Cardiovascular Cardiovascular: Denies chest pain, Denies diaphoresis, Denies dyspnea and Denies paroxysmal nocturnal dyspnea Respiratory Respiratory: Denies chest congestion, Denies cough and Denies dyspnea Integumentary/Breasts Skin/Breast: Denies lesions and Denies rash Exam Const: General: comfortable, no acute distress, alert and awake HENMT: Head: normocephalic and atraumatic Mouth: Yes Normal oral and palatal mucosa present Eyes: Conjunctivae: conjunctivae normal Pupils: Equal, round and reactive pupils present EOM: EOMs intact bilaterally Neck: Neck: normal visual inspection, no lymphadenopathy and nontender Resp: Effort & Inspection: normal respiratory effort Auscultation: clear to auscultation bilaterally Cardio: Rate: regular rate Rhythm: regular rhythm Heart
[2023-07-02] VITALS (12 sets, daily range): BP systolic 99–154; BP diastolic 57–92; PULSE 66–82; RESP 12–16; TEMP 36.1–36.8; O2SAT 98–100
[2023-07-02] MEDS: KETOROLAC 15 MG/ML VIAL (*BKC) IV PUSH (10:30)
[2023-07-02] MEDS: ACETAMINOPHEN 500 MG TABLET 1000 MG PO (10:30)
--- NOTE | 2023-07-02 11:33 | WPDANESEPPF ---
Anes - Initial Pre Proc Eval Procedure: Operation Date: 07/02/23 12:00 Proposed Procedures p Robotic Laparoscopic Repair Left Inguinal Hernia with Mesh - Tobin Aguirre MD Date/Time: 07/02/23 11:33 Surgeon: Tobin Aguirre MD Pre Op Diagnosis: left inguinal hernia Patient Data Age: 68 Gender: M Height: 1.75 m Weight: 72.6 kg Allergies Allergy/AdvReac Type Severity Reaction Status Date / Time fentanyl AdvReac Hallucinati Verified 06/27/23 09:06 ng Home Medications Medication Instructions Recorded Confirmed Type ibuprofen 200 mg tablet 400 mg PO Q6H PRN Pain 08/25/20 06/27/23 History amlodipine 5 mg tablet 5 mg PO QAM #90 tabs 05/15/23 06/27/23 Rx hydrochlorothiazide 50 mg tablet 50 mg PO DAILY #90 tabs 05/15/23 06/27/23 Rx lisinopril 40 mg tablet See Rx Instructions .Route 05/15/23 06/27/23 Rx .COMPLEX #180 tabs rosuvastatin 40 mg tablet 40 mg PO DAILY #90 tabs 05/15/23 06/27/23 Rx terbinafine HCl 250 mg tablet 250 mg PO DAILY 06/27/23 06/27/23 History Patient hx anesthesia problems: none Family hx anesthesia problems: none Results Review: All pre-operative results and documents have been reviewed as part of the pre-operative evaluation. [facility] Past Medical History Medical History BMI 24.0-24.9, adult BMI 25.0-25.9,adult COVID-19 Hypertension Surgical History Surgical History H/O prostatectomy History of right hip replacement September 2020 History of right inguinal hernia repair 03/30/2023 - Robotic laparoscopic repair right inguinal hernia with mesh Family History Family History Mother Family history of osteoporosis Father Family history of congestive heart failure, Onset Age: 83 Social History Social History Smoking status: Never smoker Second hand tobacco smoke exposure: No Alcohol intake: current Drinks per week: 2 Alcohol use details: Social Substance use: never Substance use type: does not use Lack of Transportation: No Lack of Food: Never True Current Housing: I Have Housing Concerned About Future Housing: No Difficulty Paying Gas/Electric Bills: No Difficulty Paying for Meds: No Currently Unemployed: No Living arrangements: with family Occupation/Education: occupation 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 Informed Consent: The patient's anesthetic plan and its attendant risks and benefits were discussed with the patient/family/POA. Questions were solicited and answers provided to the satisfaction of the patient/family/POA.
--- NOTE | 2023-07-02 11:37 | WPDHPUPDATE1 ---
History and Physical Update Update Date/Time: 07/02/23 11:37 History and Physical has been reviewed, including an updated exam of the patient. There are NO changes in the patient's condition. Risks, benefits, and alternatives have been discussed and questions answered. Patient agrees to proceed with procedure.
[2023-07-02] MEDS: ceFAZolin 2 GM/D5W 50 ML 2 GM/50 ML BAG IVPB (12:07)
[2023-07-02] MEDS: BUPIVACAINE/EPINEPHRINE 0.5% 50 ML VIAL 30 ML INFILTRATE (12:35)
[2023-07-02] MEDS: LACTATED RINGERS 1,000 ML 30 ML IV CONT ×3 (14:21→15:00)
--- NOTE | 2023-07-02 14:37 | W.PM.PROC2 ---
Procedure Note - Detailed Date of Procedure 07/02/23 Pre-op Diagnosis left inguinal hernia Post-op Diagnosis Same (Indirect left inguinal hernia) Procedure Performed Robotic laparoscopic repair left inguinal hernia with mesh Surgeon Tobin Aguirre MD Dry Cleaning Supervisor Chuck LOERA Anesthesia General and Local (0.5% Marcaine with epinephrine) Indications Patient underwent a right inguinal robotic hernia repair in March. In late April, he noticed a tearing sensation and soon after a bulge in the left groin. He was found to have a new left inguinal hernia. He is taken to surgery now for robotic repair of the left inguinal hernia. Findings Patient had a large indirect left inguinal hernia. There was a fair amount of scar tissue in the midline and over the pubis from the previous repair. Otherwise, no significant findings. Description of Procedure Patient was taken to surgery and induced into general anesthesia. The abdomen is prepped and draped. Local was infiltrated in the area where the previous trocars have been placed from the surgery in March. The skin and full-thickness of the abdominal wall were infiltrated. We started on the patient's right side and made a incision there. I introduced the varies needle but could not get adequate flow of CO2 into the abdomen. I then switched the varies needle over to the left sided scar. Small incision had been made there and after placement of the varies needle we were able to insufflate adequately. I then exchanged the varies needle within applied Medical 5 mm trocar under direct visualization. We inspected the area where the initial attempt to been made in no evidence of bowel or other injury was noted. The hernia was noted. Then under direct visualization the right-sided robotic trocar was placed as was the center camera port. I exchanged the 5 mm trocar for an 8 mm robotic trocar as well. The robot was then brought into the field. It was positioned appropriately. The camera was docked and targeted. The 2 instrument ports were positioned. The surgeon then went to the robotic console. The peritoneal flap was developed starting laterally and proceeding medially. Dissection was carried posterior on both the lateral and medial aspects. There was quite a bit of scarring from the previous right-sided hernia repair in March. For this reason, the right-sided dissection was pausing had I went back to the left side and developed that flap more thoroughly. I then slowly reduced the hernia and from the cord vessels. The vas deferens was easily identified. The sac was fairly large but eventually was reduced completely. I then continued the dissection so that the peritoneum was dissected off the cord structures quite a bit posteriorly and there was easily 4 cm posteriorly from the lower aspect of the indirect hernia defect. I then went back to the medial aspect and continued the dissection. This was bloody in scarred as I mention. I was able to find Jeff's ligament and the pubis. I continued the dissection and exposed the midline and the right-sided rectus muscle. I also dissected posterior to the pubis and Jeff's ligament so that the edge of the mesh could be position here. Eventually the left-sided rectus as well as Jeff's ligament and the pubis were adequately exposed. A 17 x 12 left-sided 3DMax mid mesh was then introduced. I positioned the mesh appropriately. I then used 3-0 Vicryl to suture the mesh to Jeff's ligament as well as to the anterior abdominal wall on both the medial and lateral side of the inferior epigastric vessels. I then used 3-0 V lock and closed the peritoneal opening starting laterally and proceeding medially using running suture. All looked good. We then removed the needles. The robotic instruments were removed. The robot was undocked and CO2 was evacuated from the abdominal cavity. The trocars were removed and skin wounds were closed with subcuticular 4-0 Monocryl s
--- NOTE | 2023-07-02 17:37 | SUR.PHASEII ---
PT URINATED WHEN HE ARRIVED IN OUTPT AREA. PT STATED HE HAD A DRIBBLE THEN A STREAM. BLADDER SCAN REVEALED 150ML RESIDUAL URINE. DISCHARGED PT HOME.
== END 2023-07-02 17:47 | disposition home or self-care (01) ==
PROVIDERS: PCP Family Medicine; Visit Provider Surgery
PROC: 8E0Y4CZ Robotic Assisted Procedure of Lower Extremity, Percutaneous Endoscopic Approach (ICD-10-PCS; CPT 49650; principal; 2023-07-02 12:00)
DX: K40.90 Unilateral inguinal hernia, without obstruction or gangrene, not specified as recurrent (principal); I10 Essential (primary) hypertension
CPT/HCPCS: 49650; S2900; A9270; C1781; J0690; J1100; J1885; J2250; J2371; J2405; J2704; J3010; J7120